=== PATIENT | female | born 1970 | race African-American/Black ===

== ENCOUNTER → 2017-02-24 | Outpatient (CLI) | payer MEDICARE, MEDICAID ==
--- NOTE | 2017-02-24 14:25 | KCIC ---
CHEST AP ONLY dated 02/24/2017 12:00 AM. Comparison: None. Clinical Indication: Positive TB test. Findings: Single upright portable exam performed. Heart size upper limits of normal. No consolidation or pleural effusion. No pneumothorax. There is mild bilateral perihilar thickening with minimal linear scar or atelectasis at the left mid zone. Impression: 1. No radiographic evidence of active tuberculosis. 2. Borderline cardiomegaly. 3. Minimal patchy perihilar opacity, likely scar or atelectasis. Electronically signed by: Corbin Jean-Baptiste MD (02/24/2017 2:21 PM) [id number]
== END | disposition home or self-care (01) ==
LOC: KCIC 13:56
PROVIDERS: ATTEND Internal Medicine Nephrology
DX: R76.11 Nonspecific reaction to tuberculin skin test without active tuberculosis (principal); R91.8 Other nonspecific abnormal finding of lung field
CPT/HCPCS: 71010